=== PATIENT | female | born 1940 | race Caucasian/White ===

== ENCOUNTER 2023-03-20 09:31 | Outpatient (RCR) | payer MEDICARE, SELFPAY ==
--- NOTE | 2023-03-20 10:44 | PTOPEVDC ---
Assessment and note entered by Sunita Begrer, PT Thank you for referring Amparo Luna to [facility].? An evaluation has been completed. No further treatment is needed. Evaluation Information Assessment Status Evaluation Diagnosis unsteadiness on feet Subjective Information Reports was seeing her doctor and was helped onto and off of table with hand held assist. Goes up and down stairs no problem. Walks a lot to stay active, does her own yard, washes her own car, in house in winter has exercise videos. Fell up a step coming in from mowing yard and was in a hurry. Reported Pain Level Pain Score 0: Self Report Assessment PT Clinical Summary Pt presents with diagnosis of unsteadiness on feet . Today she shows very high level balance compared to others in her age group with only very mild deficits with small base of support activities such as tandem stance and single leg stance. She demo's good strength, and all balance testing shows her as low risk for falls. Pt is highly active and was educated on benefits of Guill[employer] Chi in her independent work out regiment to maintain and continue training high level balance acivities to prevent falls and injury. Based on presentation today, pt does not appear to require skilled services at this time. She was educated on when to return to therapy however if she should require skilled assistance for mobility deficits. Plan of Care PT Services Indicated No
== END 2023-03-20 11:03 | disposition home or self-care (01) ==
LOC: ANHHIPT 09:31
PROVIDERS: PCP Physician Assistant Medical; Visit Provider Physician Assistant Medical
DX: R26.81 Unsteadiness on feet (principal)
CPT/HCPCS: 97110